=== PATIENT | male | born 1960 | race American Indian/Alaskan Native ===

== ENCOUNTER 2018-12-07 08:09 | Emergency (ER) | payer OTHER ==
[2018-12-07] MEDS ORDERED: NORCO 5/325 PO ONE (09:52)
--- NOTE | 2018-12-07 09:58 | Emergency Department Report ---
HPI - General Chief Complaint: Extremity Injury, Lower Time Seen by Provider: 12/07/18 09:45 - HPI HPI: 58-year-old -[place] male presents to the emergency department with complaint of pain to the left hamstring after doing some type of calistheni cs/exercise. When he was stretching towards his left he felt a pop within the left hamstring. Since that time has been having pain and has some difficulty with ambulation. He did not take anything for his symptoms prior to presentation. He has a past medical history of hypertension and diabetes. ED Past Medical Hx - Past Medical History Hx Hypertension: Yes Hx Diabetes: Yes - Surgical History Additional Surgical History: rt knee - Social History Smoking Status: Never Smoker Substance Use Type: None - Medications Home Medications: Home Medications Medication Instructions Recorded Confirmed Last Taken Type HYDROcodone/APAP 5-325 [[place] 1 each PO Q6HR PRN #10 tablet 12/07/18 Unknown Rx 5/325] ED Review of Systems ROS: Stated complaint: PULLED (L) HAMSTRING Other details as noted in HPI Comment: All other systems reviewed and negative Constitutional: denies: chills, fever Gastrointestinal: denies: abdominal pain Musculoskeletal: myalgia. denies: back pain, joint swelling Skin: denies: rash, change in color Neurological: denies: numbness, paresthesias Physical Exam - Physical Exam Vital Signs: Vital Signs 12/07/18 08:15 Temperature 97.9 F Pulse Rate 94 H Respiratory 18 Rate Blood Pressure 167/107 O2 Sat by Pulse 100 Oximetry Physical Exam: GENERAL: The patient is well-developed well-nourished. HEENT: Normocephalic. Atraumatic. Patient has moist mucous membranes. EYES: Extraocular motions are intact. NECK: Supple. Trachea is midline. CHEST/LUNGS: Clear to auscultation. There is no respiratory distress noted. HEART/CARDIOVASCULAR: Regular. There is no tachycardia. There is no obvious murmur. ABDOMEN: There is no abdominal distention. SKIN: Skin is warm and dry. NEURO: The patient is awake, alert, and oriented. The patient is cooperative. The patient has normal speech. MUSCULOSKELETAL: There is tenderness to palpation along the left hamstring muscle belly but no obvious deformity. There is some decreased range of motion of the left leg secondary to his hamstring pain. ED Course Vital Signs 12/07/18 08:15 Temperature 97.9 F Pulse Rate 94 H Respiratory 18 Rate Blood Pressure 167/107 O2 Sat by Pulse 100 Oximetry ED Medical Decision Making - Radiology Data Radiology results: image reviewed interpreted by me: X-ray of the left femur does not show any fracture, dislocation or any acute process. - Medical Decision Making Patient presents to the emergency department with complaint of left hamstring pain after doing some type of calisthenics. He had felt a pop. His pain is mostly into the middle of the muscle belly and does not appear in either joint, knee or hip. An x-ray was done of the left femur that does not show any large fracture, dislocation or any acute process. There is a small area of bone to the posterior left knee is most likely a normal variant but may also represent a small avulsion fracture given the patient's complaint of pain and hearing a pop. However he has no pain in this area to palpation or any significant swelling or ecchymosis. The patient will have his left hamstring wrapped with an Yasir wrap and will be nonweightbearing on crutches. He has been given referrals for orthopedist. He will return to the ER with any worsening of his symptoms or any acute distress. - Differential Diagnosis hamstring strain, tendon rupture, tendinitis, occult fracture Critical Care Time: No Critical care attestation.: If time is entered above; I have spent that time in minutes in the direct care of this critically ill patient, excluding procedure time. ED Disposition Clinical Impression: Left leg pain Hamstring strain Qualifiers: Encounter type: initial encounter Laterality: left Qualified Code(s): S76.312A - Strain of muscle, fascia and tendon of the posterior muscle group at thigh level, left thigh, initial encounter Hypertension Qualifiers: Hypertension type: essential hypertension Qualified Code(s): I10 - Essential (primary) hypertension Disposition: - TO HOME OR SELFCARE Is pt being admited?: No Condition: Stable Instructions: Muscle Strain (ED), Hypertension (ED), Arthralgia (ED) Additional Instructions: Please follow up with a primary care physician and orthopedist. I am giving you a referral for 2 different local orthopedic groups. Return to the emergency Department with any worsening of your symptoms or any acute distress. Continue taking your blood pressure medication. Try and stay away from foods are high in salt and caffeinated products to help with your blood pressure. Keep a blood pressure log. You have been prescribed a medication that can be sedating. Therefore, this medication cannot be taken prior to driving, working, being responsible for children, and cannot be mixed with alcohol of any quantity. Prescriptions: HYDROcodone/APAP 5-325 [[place] 5/325] 1 each PO Q6HR PRN #10 tablet PRN Reason: Pain Referrals: LINDA BELLA MD [Staff Physician] - 2-3 Days [facility] [Provider Group] - 2-3 Days Time of Disposition: 10:41
[2018-12-07 11:16] VITALS: BP 160/85
--- NOTE | 2018-12-07 14:29 | XRay Report ---
PROCEDURE: XR FEMUR 2+V LT TECHNIQUE: Left femur, AP and lateral HISTORY: left leg pain COMPARISON: None FINDINGS: There is no significant joint narrowing. There is mild acetabular and femoral head marginal spurring. There is no fracture identified. No acute osseous lesions seen. IMPRESSION: Minimal degenerative change involving left hip. No acute abnormality seen. This document is electronically signed by Connie Kim MD., December 07 2018 11:41:12 AM ET
== END 2018-12-07 11:16 | disposition home or self-care (01) ==
LOC: ED 08:09
DX: S76.312A Strain of muscle, fascia and tendon of the posterior muscle group at thigh level, left thigh, initial encounter (principal); I10 Essential (primary) hypertension; E11.9 Type 2 diabetes mellitus without complications; Z88.8 Allergy status to other drugs, medicaments and biological substances; X50.9XXA Other and unspecified overexertion or strenuous movements or postures, initial encounter; Y93.89 Activity, other specified; Y92.89 Other specified places as the place of occurrence of the external cause; Y99.8 Other external cause status
CPT/HCPCS: 99284